=== PATIENT | male | born 1965 | race African-American/Black ===

== ENCOUNTER 2019-07-22 21:47 | Emergency (ER) | payer MEDICAID ==
[~2019-07-22] VITALS: Ht 180.3 cm; Wt 73.0 kg
[2019-07-23 04:01] VITALS: BP 135/88
== END 2019-07-23 04:04 | disposition home or self-care (01) ==
LOC: ER 21:47
DX: F41.9 Anxiety disorder, unspecified (principal); I51.9 Heart disease, unspecified; I25.2 Old myocardial infarction; F15.10 Other stimulant abuse, uncomplicated; F17.200 Nicotine dependence, unspecified, uncomplicated
CPT/HCPCS: 93005; 99285